=== PATIENT | female | born 1965 | race Caucasian/White ===

== ENCOUNTER 2018-10-18 17:17 | Emergency (ER) | payer SELFPAY ==
[~2018-10-18] VITALS: Ht 160 cm; Wt 100.0 kg
[2018-10-18] MEDS ORDERED: HYDROCODONE/ACETAMINOPHEN 5/325MG TABLET PO ONE (18:15)
[2018-10-18 19:47] VITALS: BP 145/75
== END 2018-10-18 19:48 | disposition home or self-care (01) ==
LOC: ER 17:17
DX: M25.562 Pain in left knee (principal); M25.552 Pain in left hip; M25.571 Pain in right ankle and joints of right foot; M25.572 Pain in left ankle and joints of left foot; W01.0XXA Fall on same level from slipping, tripping and stumbling without subsequent striking against object, initial encounter; Y93.89 Activity, other specified; Y92.511 Restaurant or cafe as the place of occurrence of the external cause
CPT/HCPCS: 29505; 73110; 73502; 73560; 99283; L1830

== ENCOUNTER 2024-03-14 10:21 | Emergency (ER) | payer OTHER ==
[~2024-03-14] VITALS: Ht 160 cm; Wt 81.6 kg
[2024-03-14 10:46] VITALS: BP 148/61; PULSE 54; RESP 14; TEMP 97.7; O2SAT 97
== END 2024-03-14 13:00 | disposition home or self-care (01) ==
LOC: ER 10:37
DX: S61.012A Laceration without foreign body of left thumb without damage to nail, initial encounter (principal); I10 Essential (primary) hypertension; W26.0XXA Contact with knife, initial encounter; Z98.890 Other specified postprocedural states; X58.XXXA Exposure to other specified factors, initial encounter; Y93.89 Activity, other specified; Y92.89 Other specified places as the place of occurrence of the external cause; Y99.8 Other external cause status
CPT/HCPCS: 12002; 99282; Z7610 ×2

== ENCOUNTER 2024-03-24 08:46 | Emergency (ER) | payer OTHER ==
[~2024-03-24] VITALS: Ht 154.9 cm; Wt 81.6 kg
[2024-03-24 08:47] VITALS: BP 157/85; RESP 16; TEMP 98.2; O2SAT 96
[2024-03-24 08:50] VITALS: PULSE 51; O2SAT 96
== END 2024-03-24 09:12 | disposition home or self-care (01) ==
LOC: ER 08:46
DX: S61.412D Laceration without foreign body of left hand, subsequent encounter (principal); I10 Essential (primary) hypertension; Z98.890 Other specified postprocedural states; X58.XXXD Exposure to other specified factors, subsequent encounter
CPT/HCPCS: 99281; Z7610 ×6